=== PATIENT | female | born 1965 | race Caucasian/White ===

== ENCOUNTER 2017-01-05 17:01 | Emergency (ER) | payer SELFPAY ==
--- NOTE | ~2017-01-05 | ER ---
PATIENT'S NAME: ALESSANDRO LACY [facility] AGE: 51 Y [address] ROOM: [place] [id number] LOCATION: ED ADMIT DATE: 01/05/2017 ER/Outpatient Report DISCHARGE DATE: FAMILY PHYSICIAN: Arron Kenyon MD ATTENDING PHYSICIAN: Dorian Cardoso TIME OF ARRIVAL: 1701. TIME OF EVALUATION: 1708. CHIEF COMPLAINT: Left foot edema and pain. HISTORY OF PRESENT ILLNESS: This is a 51-year-old female who presented to the ED via private car for left foot pain and edema. She reports that she noticed that the edema started last night and then a couple hours prior to arrival to the ER, she began developing pain in that foot both with ambulation and at rest. She states that she is planning on running a 5K tomorrow, but has not been exercising out of the ordinary. She did run a 5K and a 10K earlier in the month. Denies trauma to the foot. Has not had any new wounds or issues with the foot until last night. No new medications or other factors that she can think of. No history of gout or cellulitis. Denies recent cough, cold, or other illness. Otherwise, denies fever, chills, nausea, vomiting, chest pain, shortness of breath, abdominal pain, problems with bowel bladder, weakness in any of her extremities including that foot. No sensation changes or trouble walking other than the pain. PAST MEDICAL HISTORY: Significant for bilateral Perez's palsy, anxiety, depression, and psoriasis. SOCIAL HISTORY: Lives with her significant other and son at home. Denies alcohol, illicit drugs, or tobacco use. MEDICATIONS: Reviewed. ALLERGIES: NO KNOWN DRUG ALLERGIES. REVIEW OF SYSTEMS: Complete review of systems obtained and is as per HPI otherwise negative. PATIENT'S NAME: ALESSANDRO LACY [facility] AGE: 51 Y [address] ROOM: [place], [place] [address] LOCATION: ED ADMIT DATE: 01/05/2017 ER/Outpatient Report DISCHARGE DATE: FAMILY PHYSICIAN: Arron Kenyon MD ATTENDING PHYSICIAN: Dorian Cardoso PHYSICAL EXAMINATION: VITAL SIGNS: Blood pressure 134/87, pulse 75, respiration rate is 16, temperature 96.4, O2 saturation 97% on room air. GENERAL: She is a 51-year-old female in no apparent distress. Alert and oriented x3. HEENT: Pupils equal, round, reactive to light. Facial drooping consistent with Perez's palsy. Patent airway. CARDIOVASCULAR: Regular rate and rhythm. No murmur auscultated. LUNGS: Clear to auscultation bilaterally. ABDOMEN: Positive bowel sounds. No distention noted. SKIN: No erythema noted particularly pertaining to the left foot. NEURO: Again, alert and oriented x3. Normal sensation of the foot. EXTREMITIES: Left lower foot, she does have edema of the distal foot noted diffusely on the plantar and dorsal surface. She is tender greatest over the left great toe, but then does have tenderness to the medial dorsum of the foot. Foot does feel warmer in comparison to the right foot. No obvious abrasion or open wound is noted. LABORATORY DATA AND X-RAYS: A CBC, renal panel, ESR, CRP, procalcitonin, as well as left foot x-ray are all ordered and pending. The patient will be handed over to Dr. Francisco who will follow up on these and treat accordingly. We did discuss possibility of cellulitis versus joint infection versus gout with the patient. Dr. Cardoso also saw the patient who agrees with the workup. SARAHI FOFANA MD FOR MD KARLA CASILLAS/alejandro /[id number] I have seen and evaluated this patient personally. I have reviewed the plan of care as noted above and have dictated a short note as well. d: 01/05/17 2234 t: 01/16/17 0627, OUTPATIENT REPORT
--- NOTE | ~2017-01-05 | ER ---
PATIENT'S NAME: ALESSANDRO SEGOVIA [facility] AGE: 51 Y [address] ROOM: [place] [address] LOCATION: [facility] ADMIT DATE: 01/05/2017 ER/Outpatient Report DISCHARGE DATE: FAMILY PHYSICIAN: Arron Kenyon MD ATTENDING PHYSICIAN: Dorian Macias CHIEF COMPLAINT: Left foot pain. I saw this patient in conjunction with resident, Agata Real. Please see her dictation for the complete history and physical. Briefly, Ms Segovia is a 51-year-old female, who has been trying to be more active lately. She has recently run a 5K and 10K and is planning on participating in a 5K tomorrow. Since last night after she went for a long walk, she has had some pain in her left forefoot. It is located in the joint between the toes and the foot, mostly on the first toe. She has no specific symptoms other than it hurts. It hurts mostly to put pressure on it, and moving the toes do not particularly bother her. In any case, we intend to broad differential including septic joint arthritis, overuse injury, and gout. X-rays were obtained, and there were no fractures or other deformities appreciated. Laboratory evaluation was obtained. There is no elevation of her inflammatory markers. No leukocytosis. We will recommend that she follow up with her orthopedic team as needed. She should return to the emergency department, if worse. She should follow up with her primary care physician and use ice and NSAIDs as needed. All questions were answered, and the patient was discharged in good condition. DORIAN MACIAS MD [facility]/modl /[id number] d: 01/06/17650 t: 01/16/17620, OUTPATIENT REPORT
[2017-01-05 17:34] LABS: BASOPHIL % 0.5 %; EOSINOPHIL # 0.5 K/uL (0.0-0.5); EOSINOPHIL % 6.1 %; HEMATOCRIT 38.3 % (33.0-46.0); HEMOGLOBIN 13.5 g/dL (10.0-15.0); IMMATURE GRANULOCYTE % 0.3 %; LYMPHOCYTE # 2.2 K/uL (0.8-4.0); LYMPHOCYTE % 29.2 %; MCH 31.1 pg (27.0-34.0); MCHC 35.2 gm/dL (32.0-36.5); MCV 88.2 fl (83.0-98.0); MONOCYTE # 0.6 K/uL (0.0-1.0); MPV 8.3 fl (9.4-12.4); NEUTROPHIL # (ANC) 4.1 K/uL (1.8-7.8); NEUTROPHIL % 55.9 %; NRBC % 0 /100WBC (0-0.00); PLATELET COUNT 282 K/uL (150-450); RDW-CV 12.2 % (11.9-14.6); WBC 7.4 K/uL (4.0-11.0)
[2017-01-05 17:40] LABS: RBC 4.34 M/uL (3.50-5.50)
[2017-01-05 17:51] LABS: ALBUMIN 3.6 gm/dL (3.5-5.0); ANION GAP 9.4 (10.0-19.0); CALCIUM 8.7 mg/dL (8.5-10.5); PHOSPHORUS 2.8 mg/dL (2.5-4.9); POTASSIUM 3.4 mMol/L (3.7-5.1)
== END 2017-01-05 18:39 | disposition disaster alternative care site (69) ==
LOC: GMED 17:01
PROVIDERS: Emergency Medicine
DX: M79.672 Pain in left foot (principal); R60.0 Localized edema; G51.0 Bell's palsy; F41.9 Anxiety disorder, unspecified; L40.9 Psoriasis, unspecified; F32.9 Major depressive disorder, single episode, unspecified; Z79.899 Other long term (current) drug therapy